=== PATIENT | female | born 1985 | race African-American/Black ===

== ENCOUNTER 2018-05-02 09:00 | Emergency (ER) | payer OTHER ==
[~2018-05-02] VITALS: Ht 175.3 cm; Wt 66.7 kg
[2018-05-02] MEDS ORDERED: NKM (09:08)
--- NOTE | 2018-05-02 09:11 | NUR ---
ED Nurse Note: Pt came into the ER w/ complaints of swollen jaw since yesterday. Pt denies any pain. No redness or recent trauma stated. Pt said that she has a keloid around the area of the jaw. A + O x4. Ambulatory. Skin warm to touch.
[2018-05-02 09:12] VITALS: BP 105/74
[2018-05-02] MEDS ORDERED: BENADRYL25 MG ORAL (09:33)
[2018-05-02] MEDS ORDERED: PEPCID AC20 M2 PO (09:33)
[2018-05-02] MEDS ORDERED: CEPHALEXIN500 MG ORAL (09:33)
[2018-05-02] MEDS ORDERED: BACTRIM DS TAB1 EAC1 ORAL (09:33)
[2018-05-02] MEDS ORDERED: PREDNISONE20 MG ORAL (09:33)
[2018-05-02 09:37] VITALS: BP 121/74
--- NOTE | 2018-05-02 09:38 | NUR ---
ED Nurse Note: Discharge instructions given to pt. Answered all questions. Verbalized understanding. No acute distress noted. ID band removed. Left ER w/ all belongings and w/ a steady gait.
--- NOTE | 2018-05-02 09:40 | Emergency Room Report ---
History of Present Illness General Chief Complaint: General Complaint Source: Patient Present Illness HPI Patient has a history of keloid in her chin. Patient thought it was getting infected because it appeared to be irritated. Patient then tried to manipulate it some more yesterday. Since then her chin has become more swollen. She denies any difficulty with swallowing. Denies any swelling around the neck. Denies any abscess or pus discharge. No other complaints are noted. Symptoms noted to be moderate. Patient states in the past when she has manipulated her keloid in the chin area it has resulted in swelling but that swelling has always resolved. Patient states the swelling has not resolved this time which is why she became concerned and came here for further evaluation.No other modifying factors. No other associated signs and symptoms. No other complaints were noted. Allergies: Coded Allergies: No Known Allergies (Unverified , 05/02/18) Patient History Past Medical History: none Past Surgical History: none Pertinent Family History: none Social History: Denies: smoking, alcohol use, drug use Now: No Reviewed Nursing Documentation: PMH: Agreed; PSxH: Agreed Nursing Documentation-PMH Past Medical History: No Stated History Review of Systems All Other Systems: negative except mentioned in HPI Physical Exam Vital Signs Date Time Temp Pulse Resp B/P (MAP) Pulse Ox O2 Delivery O2 Flow Rate FiO2 05/02/18 09:06 98.6 70 19 105/74 98 Room Air 05/02/18 09:12 98 Sp02 EP Interpretation: reviewed, normal General Appearance: normal inspection, well appearing, no apparent distress, alert Head: atraumatic Eyes: bilateral eye normal inspection ENT: hearing grossly normal, normal voice, other - Irritation, edema involving chin Neck: normal inspection, full range of motion, supple, no bony tend Respiratory: normal inspection, lungs clear, normal breath sounds, no respiratory distress, no retraction, no wheezing Cardiovascular #1: regular rate, rhythm, no edema Gastrointestinal: normal inspection, normal bowel sounds, non tender, soft, no guarding, no hernia Genitourinary: no CVA tenderness Musculoskeletal: normal inspection, back normal, normal range of motion Neurologic: normal inspection, alert, responsive, speech normal Psychiatric: normal inspection, judgement/insight normal, mood/affect normal Skin: other - Urticaria, left torso near pelvis Medical Decision Making Diagnostic Impression: Primary Impression: Allergic reaction Additional Impressions: Hives Facial edema ER Course Patient presents emergency department today complaining of swelling around the chin area. Differential considerations include infection, abscess, irritation edema, allergic reaction just name a few. Patient's exam fairly benign. This does not appear to involve the oral or mucosal membranes. I felt that this is likely secondary to irritation although allergies could be another reason. Patient does have some hives in her torso. Therefore I felt the patient would benefit from some Benadryl Pepcid and prednisone. We'll also provide Bactrim and Keflex in case that it becomes infected. However will recommended holding off on taking antibiotics at this time.Patient is advised to follow up with primary doctor in 2-3 days and return the emergency room for any worsening symptoms and as needed. Last Vital Signs Date Time Temp Pulse Resp B/P (MAP) Pulse Ox O2 Delivery O2 Flow Rate FiO2 05/02/18 09:12 70 19 Room Air 98 05/02/18 09:12 98.6 105/74 98 Status: unchanged Disposition: HOME, SELF-CARE Condition: Stable Scripts Cephalexin* (KEFLEX*) 500 Mg Capsule 500 MG ORAL EVERY 6 HOURS for 7 Days, CAP Prov: Franco Hairston MD 05/02/18 Trimethoprim/Sulfamethoxazole 160/800* (BACTRIM DS TABLET*) 1 Each Tablet 1 TAB ORAL Q12H, #14 TAB 0 Refills Prov: Franco Hairston MD 05/02/18 Famotidine (PEPCID AC) 20 Mg Tablet 20 MG PO BID for 7 Days, TAB Prov: Franco Hairston MD 05/02/18 Prednisone* (PREDNISONE*) 20 Mg Tablet 40 MG ORAL DAILY, #10 TAB Prov: Franco Hairston MD 05/02/18 Diphenhydramine Hcl* (BENADRYL*) 25 Mg Capsule 50 MG ORAL Q6H PRN for swelling, #14 CAP Prov: Franco Hairston MD 05/02/18 Patient Instructions: Pruritus Franco Hairston MD May 02, 2018 09:40
== END 2018-05-02 09:38 | disposition home or self-care (01) ==
LOC: EMR 09:30
DX: T78.40XA Allergy, unspecified, initial encounter (principal); X58.XXXA Exposure to other specified factors, initial encounter; R60.0 Localized edema; L50.0 Allergic urticaria
CPT/HCPCS: 99282